=== PATIENT | male | born 1995 | race Caucasian/White ===

== ENCOUNTER 2017-05-22 13:44 | Emergency (ER) | payer OTHER ==
[~2017-05-22] VITALS: Ht 170.2 cm; Wt 84.6 kg
[~2017-05-22 13:44] MED LIST: ABILIFY5 MG PO; FOCALIN XR15 MG PO; INTUNIV1 MG PO; LITHATE5 MG PO; NEURONTIN50 MG/ML PO; REMERON15 M1 PO
[2017-05-22] MEDS ORDERED: NAPROSYN500 MG PO (15:32)
[2017-05-22 15:38] VITALS: BP 133/80
== END 2017-05-22 15:39 | disposition home or self-care (01) ==
LOC: EME 13:44
DX: S06.9X1A Unspecified intracranial injury with loss of consciousness of 30 minutes or less, initial encounter (principal); S00.83XA Contusion of other part of head, initial encounter; Y04.0XXA Assault by unarmed brawl or fight, initial encounter; Y07.04 Female partner, perpetrator of maltreatment and neglect; F17.200 Nicotine dependence, unspecified, uncomplicated
CPT/HCPCS: 70450; 70486; 99281; 99284

== ENCOUNTER 2017-11-20 23:31 | Emergency (ER) | payer OTHER ==
[~2017-11-20] VITALS: Ht 195.6 cm; Wt 7.0 kg
[~2017-11-20 23:31] MED LIST changes: +NAPROSYN500 MG PO
[2017-11-21 00:09] LABS: HEMATOCRIT 48.1 % (38.0-50.0); HEMOGLOBIN 17.1 G/DL (12.5-16.6); MCH 31.3 PG (29.0-34.0); MCHC 35.6 G/DL (30.0-36.0); MCV 87.9 FL (86-99); PLATELET COUNT 265 K/uL (156-360); RBC DIS.WIDTH-CV 11.9 % (11.8-14.6); RBC DIS.WIDTH-SD 38.7 % (39-53); RED BLOOD COUNT 5.47 M/uL (4.00-5.50); WHITE BLOOD COUNT 7.9 K/uL (4.1-10.2)
[2017-11-21 00:19] LABS: ALBUMIN 4.4 g/dL (3.2-4.8); CHLORIDE 104 mEq/L (99-109); POTASSIUM 3.6 mEq/L (3.7-5.4)
[2017-11-21 00:20] LABS: SODIUM 140 mEq/L (136-147)
[2017-11-21 00:22] LABS: GLUCOSE 105 mg/dL (70-99); TOTAL PROTEIN 6.9 g/dL (6.4-8.3)
[2017-11-21 00:24] LABS: TOTAL BILIRUBIN 0.4 mg/dL (0.0-1.0)
[2017-11-21 00:25] LABS: ALKALINE PHOSPHATASE 77 IU/L (3-129); CREATININE 0.8 mg/dL (0.6-1.3); GFR ESTIMATE (CALCULATED) > 59 mL/min/ (58.99-99999)
[2017-11-21 00:27] LABS: AST (GOT) 31 IU/L (2-34); UREA NITROGEN (BUN) 10 mg/dL (9-23)
[2017-11-21 00:28] LABS: ALT (GPT) 35 IU/L (3-49)
[2017-11-21 00:29] LABS: LIPASE 10 U/L (1.0-51.0)
[2017-11-21] MEDS ORDERED: PRILOSEC20 MG PO (01:19)
[2017-11-21 01:30] VITALS: BP 145/83
== END 2017-11-21 01:31 | disposition home or self-care (01) ==
LOC: EME 23:31
PROVIDERS: Physician Assistant
DX: R10.13 Epigastric pain (principal); R13.10 Dysphagia, unspecified; K76.0 Fatty (change of) liver, not elsewhere classified; F31.9 Bipolar disorder, unspecified; F98.8 Other specified behavioral and emotional disorders with onset usually occurring in childhood and adolescence; F41.9 Anxiety disorder, unspecified; F17.200 Nicotine dependence, unspecified, uncomplicated; Z87.19 Personal history of other diseases of the digestive system; Z83.79 Family history of other diseases of the digestive system; Z88.0 Allergy status to penicillin
CPT/HCPCS: 76705; 80053; 83690; 85027; 99281; 99284

== ENCOUNTER 2018-02-07 20:03 | Emergency (ER) | payer OTHER ==
[~2018-02-07] VITALS: Ht 170.2 cm; Wt 75.0 kg
[~2018-02-07 20:03] MED LIST changes: +PRILOSEC20 MG PO
[2018-02-07 22:07] VITALS: BP 146/70
== END 2018-02-07 22:11 ==
LOC: EME 20:03
DX: S00.83XA Contusion of other part of head, initial encounter (principal); R07.81 Pleurodynia; Y04.0XXA Assault by unarmed brawl or fight, initial encounter; Y07.04 Female partner, perpetrator of maltreatment and neglect; F31.9 Bipolar disorder, unspecified; F41.9 Anxiety disorder, unspecified; F17.200 Nicotine dependence, unspecified, uncomplicated; Z88.0 Allergy status to penicillin
CPT/HCPCS: 70450; 70486; 71046; 99281; 99283